=== PATIENT | male | born 1955 | race African-American/Black ===

== ENCOUNTER 2018-02-01 20:05 | Emergency (ER) | payer SELFPAY ==
[2018-02-01] MEDS ORDERED: IPRATROPIUM/ALBUTEROL SULFATE 3 ML AMPUL.NEB NEB STA (20:53)
[2018-02-01 21:19] LABS: BASOPHILS % 0.7 (0.0-1.5); EOSINOPHILS % 4.2 % (0.0-6.8); MEAN CORPUSCULAR HEMOGLOBIN 29.1 pg (28.0-34.0); MEAN CORPUSCULAR VOLUME 94.1 fl (80.0-100.0); MONOCYTES % 4.8 % (0.0-11.0); NEUTROPHILS # 3.8 # k/uL (1.4-7.7)
--- NOTE | 2018-02-01 21:52 | ED Physician Documentation ---
General Adult - HISTORIAN Historian: patient - HPI Stated Complaint: Shortness of air Chief Complaint: General Adult Further Comments: yes (62 year old male patient presents with complaints of dyspnea for the past 2 weeks with cough. Patient reports he smoked meth 3 days ago. No PCP, does not go to the doctor.) - ROS CONST: no problems EYES/ENT: none CVS/RESP: shortness of breath, cough GI/: none MS/SKIN/LYMPH: none NEURO/PSYCH: denies: headache - PAST HX Past History: none Other History: none Surgeries/Procedures: none Allergies/Adverse Reactions: Allergies Allergy/AdvReac Type Severity Reaction Status Date / Time No Known Allergies Allergy Unverified 02/01/18 21:38 Home Medications: Ambulatory Orders Medication Instructions Recorded amLODIPine BESYLATE [Norvasc] 5 mg PO 0900 #30 tablet 02/01/18 - SOCIAL HX Smoking History: cigarettes Drug Use: methamphetamines (occassional use) - FAMILY HX Family History: No - VITAL SIGNS Vital Signs: Vital Signs Temp Pulse Resp BP Pulse Ox 98.2 F 112 H 20 206/122 96 02/01/18 20:05 02/01/18 20:05 02/01/18 20:05 02/01/18 20:05 02/01/18 20:05 - REVIEWED ASSESSMENTS Nursing Assessment Reviewed: Yes Vitals Reviewed: Yes Progress - Progress Progress: Patient states he feels better after nebulizer treatment. Extensive discussion about patient's hypertension and cardiomegaly. strongly encouraged patient to establish PCP and seek treatment for his hypertension. Instructed patient not to smoke methamphetamines. Risk reviewed. Clonidine po given for hypertension DBP >110; Patient refuses to wait for additional hypertension treatment; refusal completed ED Results Lab/Radiology - Lab Results Lab Results: Lab Results 02/01/18 02/01/18 21:12 21:12 WBC 5.80 K/ul K/ul (4.00-12.00) RBC 4.36 M/ul M/ul (3.90-5.20) Hgb 12.7 g/dL g/dL (12.0-18.0) Hct 41.0 % % (37.0-53.0) MCV 94.1 fl fl (80.0-100.0) MCH 29.1 pg pg (28.0-34.0) MCHC 31.0 g/dL g/dL (30.0-36.0) RDW 13.5 % % (11.3-14.3) Plt Count 230 K/mm3 K/mm3 (130-400) Neut % (Auto) 66.1 % % (39.0-79.0) Lymph % (Auto) 22.7 % % (16.0-50.0) [place] % (Auto) 4.8 % % (0.0-11.0) Eos % (Auto) 4.2 % % (0.0-6.8) Baso % (Auto) 0.7 (0.0-1.5) Neut # (Auto) 3.8 # k/uL # k/uL (1.4-7.7) Lymph # (Auto) 1.3 # k/uL # k/uL (0.6-4.0) [place] # (Auto) 0.3 # k/uL # k/uL (0.0-0.9) Eos # (Auto) 0.2 # k/uL # k/uL (0.0-0.6) Baso # (Auto) 0.0 # k/uL # k/uL (0.0-0.5) Reactive Lymphs % 1.5 % % (0.0-5.0) Reactive Lymphs # 0.1 # k/uL # k/uL (0.0-0.8) Sodium 144 mmol/L mmol/L (136-145) Potassium 4.6 mmol/L mmol/L (3.5-5.1) Chloride 106 mmol/L mmol/L (98-107) Carbon Dioxide 26 mmol/L mmol/L (22-30) BUN 19 mg/dL mg/dL (9-20) Creatinine 1.80 mg/dL H mg/dL (0.66-1.25) Estimated Creat Clear 50 Est GFR ( Amer) 49 L (60 - ) Est GFR (Non-Af Amer) 41 L (60 - ) Glucose 101 mg/dL mg/dL (74-106) Calcium 9.2 mg/dL mg/dL (8.4-10.2) Total Bilirubin 0.8 mg/dL mg/dL (0.2-1.3) AST 40 U/L U/L (15-46) ALT 52 U/L U/L (13-69) Alkaline Phosphatase 103 U/L U/L (38-126) Total Protein 7.7 g/dL g/dL (6.3-8.2) Albumin 4.3 g/dL g/dL (3.5-5.0) - Radiology Radiology Impressions: Chest, 2 view History: Cough and congestion Findings: The heart size is enlarged. Minimal left base are displayed atelectasis noted. The. There is no pleural effusion or pneumothorax identified. The osseous structures are normal. Impression: 1. Mild cardiomegaly minimal left basilar atelectasis Electronically signed on Feb 01, 2018 8:48:48 PM CDT by: Hoang Wadsworth - Orders Orders: ED Orders Category Date Time Status CHEST 2VIEW [RAD] Stat Exams 02/01/18 20:36 Taken CBC/PLATELET/DIFF Stat Lab 02/01/18 21:12 Completed CMP Stat Lab 02/01/18 21:12 Completed Ipratropium/Albuterol Sulfate [Duoneb] Med 02/01/18 20:53 Discontinued 3 ml NEB STAT STA General Adult Physical Exam - PHYSICAL EXAM GENERAL APPEARANCE: mild distress EENT: eye inspection normal, ENT inspection normal, pharynx normal, no signs of dehydration, MELANIA, no nystagmus, TM's nml RESPIRATORY: no resp distress, chest non-tender, breath sounds normal CVS: reg rate & rhythm, heart sounds normal, equal pulses, no murmur, no gallop , PMI nml, no JVD, no friction rub, 24 ABDOMEN: soft, no organomegaly, normal bowel sounds, no abdominal bruit, no distension SKIN: normal color, warm/dry, NR, INT, PAL, DR EXTREMITIES: non-tender, normal range of motion, no evidence of injury, no edema , J, [employer] MACHINE OPERATOR NEURO: oriented X3, CN's nml as tested, motor nml, sensation nml, mood/affect nml Discharge Clincal Impression: Methamphetamine use Hypertension Qualifiers: Hypertension type: essential hypertension Qualified Code(s): I10 - Essential ( primary) hypertension Dyspnea Qualifiers: Dyspnea type: dyspnea on exertion Qualified Code(s): R06.09 - Other forms of dyspnea Prescriptions: amLODIPine BESYLATE [Norvasc] 5 mg PO 0900 #30 tablet Referrals: Primary Doctor,No [Primary Care Provider] - 2 Days Additional Instructions: 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 Establish primary care and have your blood pressure checked next week. Condition: Stable Disposition: 01 HOME, SELF-CARE Decision to Admit: NO Decision Time: 21:52
[2018-02-01] MEDS ORDERED: CloNIDine HCL 0.1 MG TABLET PO ONE (21:53)
[2018-02-01 22:45] VITALS: BP 156/119
--- NOTE | 2018-02-02 05:43 | Diagnostic Imaging Report ---
KELLY LUDWIG (COMMUNITY [employer]GANIZATION WORKER) - ER [facility] [address] [address] Report Submission Date: Feb 01, 2018 8:48:48 PM CDT Patient Study Name: ERIKA GLYNN Date: Feb 01, 2018 8:37:20 PM CDT Modality Type: DX Gender: M Description: CHEST : 53 Institution: [facility] Physician: KELLY LUDWIG (MEME) - ER Chest, 2 view History: Cough and congestion Findings: The heart size is enlarged. Minimal left base are displayed atelectasis noted. The. There is no pleural effusion or pneumothorax identified. The osseous structures are normal. Impression: 1. Mild cardiomegaly minimal left basilar atelectasis Electronically signed on Feb 01, 2018 8:48:48 PM CDT by: Hoang LEE
== END 2018-02-01 22:40 | disposition home or self-care (01) ==
LOC: ED 20:05
DX: I10 Essential (primary) hypertension (principal); I51.7 Cardiomegaly; R06.9 Unspecified abnormalities of breathing; F15.90 Other stimulant use, unspecified, uncomplicated
CPT/HCPCS: 71046; 80053; 85025; 94640; 99283

== ENCOUNTER 2018-04-23 11:38 | Emergency (ER) | payer SELFPAY ==
[2018-04-23 11:53] VITALS: BP 106/63
--- NOTE | 2018-05-21 07:32 | ED Physician Documentation ---
Lower Extremity Problem - HISTORIAN Historian: patient - HPI Stated Complaint: Left knee swelling Chief Complaint: Lower Extremity Problem Additional Information: Left knee swollen, warm, painful for 2 days. HX of gout. This feels the same, ut is not as severe as it has been at times. Location of Injury: L knee - ROS CONST: no problems - PAST HX Past History: other (gout, HTN) Allergies/Adverse Reactions: Allergies Allergy/AdvReac Type Severity Reaction Status Date / Time No Known Allergies Allergy Unverified 02/01/18 21:38 Home Medications: Ambulatory Orders Medication Instructions Recorded Aspirin 81 mg PO DAILY u2 02/16/18 Hydrocodone/Acetaminophen [[place] 1 tab PO Q4H PRN #15 04/23/18 5-325 Tablet] Naproxen [Naprosyn] 500 mg PO BID #20 tablet 04/23/18 predniSONE [Deltasone] 40 mg PO QD #14 tablet 04/23/18 - SOCIAL HX Smoking History: cigarettes - FAMILY HX Family History: no significant history - VITAL SIGNS Vital Signs: Vital Signs Temp Pulse Resp BP Pulse Ox 98.2 F 86 18 106/63 99 04/23/18 12:26 04/23/18 12:26 04/23/18 12:26 04/23/18 12:26 04/23/18 12:26 - REVIEWED ASSESSMENTS Nursing Assessment Reviewed: Yes Vitals Reviewed: Yes Lower Extremity Problem - EXAM General Appearance: mild distress Hips: bilateral hip: no evidence of injury Legs: bilateral: no evidence of injury Knees: left: joint effusion (mild, slight warmth, erythema, some tenderness) Ankle: bilateral: normal inspection, no evidence of injury Neuro/Tendon: normal sensation, normal motor functions, normal tendon functions EENT: eye inspection normal, ENT inspection normal RESPIRATORY: no resp distress JOINT: antalgic gait VASCULAR: no vascular compromise, pulses full/equal NEURO/PSYCH: CN's nml as tested, motor nml, sensation nml SKIN: warm/dry, normal color BACK: other (fluid movements w/o pain) Discharge Clincal Impression: Gout Prescriptions: Hydrocodone/Acetaminophen [[place] 5-325 Tablet] 1 tab PO Q4H PRN #15 PRN Reason: Pain Naproxen [Naprosyn] 500 mg PO BID #20 tablet predniSONE [Deltasone] 40 mg PO QD #14 tablet Referrals: Primary Doctor,No [Primary Care Provider] - 2 Days Condition: Good Disposition: 01 HOME, SELF-CARE Decision to Admit: NO Decision Time: 12:28
== END 2018-04-23 12:26 | disposition home or self-care (01) ==
LOC: ED 11:38
DX: M10.9 Gout, unspecified (principal)
CPT/HCPCS: 99282

== ENCOUNTER 2019-07-05 12:20 | Outpatient (CLI) | payer MEDICARE ==
[2019-07-05 12:40] LABS: BASOPHILS % 0.4 % (0.0-1.5); NEUTROPHILS # 4.3 # k/uL (1.4-7.7)
[2019-07-05 12:46] LABS: eGFR (Non-African) > 60
--- NOTE | 2019-07-05 14:05 | Diagnostic Imaging Report ---
ARIELLA CORRIGAN [facility] [address] [facility] [address] [place], [place]. [address] Report Submission Date: Jul 05, 2019 12:45:49 PM CDT Patient Study Name: ERIKA GLYNN Date: Jul 05, 2019 12:27:55 PM CDT Modality Type: CT\SR Gender: M Description: CT BRAIN W/O CONTRAST : 53 Institution: [facility] Physician: ARIELLA CORRIGAN Examination: CT head without contrast History: LEFT SIDED WEAKNESS Comparison exam: None available Technique: Noncontrast head CT protocol. Findings: Ventricles and sulci are appropriate for patient age. Cerebrocerebellar parenchyma demonstrates normal attenuation. No evidence for parenchymal hemorrhage. No evidence for mass or mass effect. No midline shift. No extra axial fluid collections. Partial visualization of the paranasal sinuses, mastoid air cells, orbits, skull and scalp without gross irregularity. Impression: No acute parenchymal process. No hemorrhage. Electronically signed on Jul 05, 2019 12:45:49 PM CDT by: Pedro LEE
== END 2019-07-05 12:23 ==
LOC: RAD 12:20
PROVIDERS: ATTEND Family Medicine
DX: I10 Essential (primary) hypertension (principal); I63.9 Cerebral infarction, unspecified; R29.898 Other symptoms and signs involving the musculoskeletal system
CPT/HCPCS: 36415; 70450; 80053; 85025